=== PATIENT | female | born 1995 | race Caucasian/White ===

== ENCOUNTER 2017-09-27 01:15 | Emergency (ER) | payer OTHER ==
[~2017-09-27] VITALS: Ht 167.6 cm; Wt 105.9 kg
[2017-09-27 01:18] VITALS: TEMP 36.8; Ht 167.6 cm; Wt 105.9 kg
--- NOTE | 2017-09-27 01:26 | EMERGENCY ROOM VISIT NOTE ---
History Report prepared by Emi: Michele Alcantara Under the Supervision of: Dr. Gaurav Carrizales M.D. First contact with patient: 01:17 Chief Complaint: ALCOHOL OVERDOSE Stated Complaint: ALCOHOL OVERDOSE History of Present Illness The patient is a 22 year old female who presents to the Emergency Room brought in by EMS with complaints of persistent general alcohol intoxication. She states that she has consumed six shots of alcohol. She has a history of anxiety and depression. She states that she has vomited twice. She reports bilateral foot pain. She reports pain everywhere. HPI is limited secondary to alcohol intoxication. Source of History: patient History Limited By: intoxication (alcohol) Onset: [employer] Position: other (general ) Quality: other (alcohol intoxication) Timing: other (persistent) Note: Notes bilateral foot pain. Review of Systems ROS is limited secondary to alcohol intoxication. Past Medical & Surgical Medical Problems: (1) Anxiety (2) Depression Family History No pertinent family history Social History Smoking Status: Never Smoker Smokeless Tobacco Use: No Alcohol Use: heavy Drug Use: none Marital Status: single Housing Status: lives with roommate Occupation Status: [employer] student Current/Historical Medications Scheduled Gabapentin (Neurontin), 400 MG PO TID Medroxyprogesterone Acetate (Depo-Provera), 1 DOSE INJ Q3MO Scheduled PRN Ibuprofen Tab (Advil), 200-600 MG PO Q4H PRN for Pain Allergies Coded Allergies: No Known Allergies (Unverified , 09/27/17) Physical Exam Vital Signs Date Time Temp Pulse Resp B/P (MAP) Pulse Ox O2 Delivery O2 Flow Rate FiO2 09/27/17 06:25 78 16 123/80 99 Room Air 09/27/17 05:50 93 09/27/17 05:41 90 16 106/63 98 Room Air 09/27/17 04:25 85 16 137/92 97 Room Air 09/27/17 03:09 87 20 90/56 98 Room Air 09/27/17 02:04 78 16 119/83 100 Room Air 09/27/17 01:28 100 Room Air 09/27/17 01:28 107 09/27/17 01:18 36.8 109 24 119/83 100 Room Air Physical Exam GENERAL: Patient is heavily intoxicated. Smells of alcohol. Well appearing and in no acute distress. Crying. Vomit in her hair. HEAD: No evidence of Trauma. AT/NC EYES: Injected conjunctiva. Normal EOM. Pupils equal/reactive. ENT: Mucous membranes moist, no nasal congestion. NECK: No step-offs, no adenopathy, no meningismus, trachea is midline. LUNGS: No dyspnea. Clear to auscultation and equal bilaterally. No wheeze, no rhonchi. HEART: Regular rate and rhythm. No murmurs, rubs, gallops appreciated. GI: Abdomen soft, nontender, no peritonitis. Bowel sounds positive. No masses appreciated. BACK: No midline tenderness, no stepoffs, no CVA tenderness EXTREMITIES: Normal motion all extremities, no cyanosis, no edema. NEUROLOGIC: Intoxicated. Crying and upset, answers all questions. No acute motor or sensory deficits, no focal weakness, cranial nerves grossly intact. SKIN: No rash, no jaundice, no diaphoresis. Old scarring bilateral ankles. Medical Decision & Procedures Laboratory Results 09/27/17 01:24 Test 09/27/17 01:24 Anion Gap 3.0 mmol/L (3-11) Est Creatinine Clear Calc Drug Dose 142.8 ml/min Estimated GFR () 129.1 Estimated GFR (Non- 111.3 BUN/Creatinine Ratio 18.0 (10-20) Calcium Level 9.0 mg/dl (8.5-10.1) Human Chorionic Gonadotropin, Qual NEG (NEG) Ethyl Alcohol mg/dL 219.0 mg/dl (0-3) Laboratory results as reviewed by me. ED Course 0118: The patient was evaluated in room A12B. A complete history and physical exam was performed. 0401: I reassessed the patient at this time. She is awake and crying. She admits to alcohol use. She denies any SI or HI. 0730: I reassessed the patient at this time. She is feeling better and resting comfortably. I discussed the results and treatment plan with the patient. I answered all pertaining questions that she had. She expressed understanding and verbalized agreement. The patient will be discharged home. Medical Decision Differential: Alcohol Intoxication, Drug Intoxication, Electrolyte Abnormality, Trauma, Intracranial Event, Toxicological, Excited Delirium, Serotonin Syndrome , amongst other pathologies entertained. 22 yr old intoxicated female brought in by EMS after being found vomiting in dorm bathrooms. Patient admits etoh after finishing final project of semester and to relax. Admits this just made her more anxious (chronic anxiety). Denies any suicidal/homicidal thoughts nor actions. She was awake throughout much of stay be a bit too intoxicated to go home quite yet. She admits chronic insomnia issues and being awake all night not unusual for her. Patient with no evidence nor history for trauma. Protecting airway and breathing comfortably throughout ED stay. Monitored and discharged when awake, alert, oriented and denies any complaints. Medication Reconcilliation Current Medication List: was personally reviewed by me Blood Pressure Screening Patient's blood pressure: Normal blood pressure Impression Primary Impression: Alcohol use with intoxication Scribe Attestation The scribe's documentation has been prepared under my direction and personally reviewed by me in its entirety. I confirm that the note above accurately reflects all work, treatment, procedures, and medical decision making performed by me. Departure Information Patient Instructions [facility], [facility]: [employer] Students and Alcohol Related Visits Additional Instructions You were evaluated in emergency department for intoxication. This is a sign of Alcohol Abuse and should not be taken lightly. You had a blood alcohol level that was significantly elevated. Over the next 24 hours keep well hydrated and eat light meals. Don't drink any more alcohol. This is important. Please discuss this visit with your Primary Care Provider and/or your loved ones. Unless an exceptional circumstance, the Hospital DOES NOT contact anyone DURING your visit, nor is your Protected Medical Information released to anyone without your approval/request. This means we do not contact your Parents, the Police, etc. However, you will likely receive a bill from the Hospital and/or your Insurance company, which will usually be sent to the Primary Policy Schreiber (often one's Parents). If the Police were involved you will likely be cited for public intoxication. Please contact either [facility] Police or the [employer] Police for further information. Call 911 or return to Emergency Department if you develop: Passing out, difficulty breathing, many episodes of vomiting, blood in vomit or stool, abdominal pain, fevers, or other severe symptoms. We are always here to help if you feel you need further evaluation or treatment.
[2017-09-27 01:28] VITALS: O2SAT 100
[2017-09-27 01:49] LABS: CREATININE 0.76 mg/dl (0.60-1.20); POTASSIUM 3.8 mmol/L (3.5-5.1)
[2017-09-27] MEDS ORDERED: IBUP-103 PO (01:58)
[2017-09-27] MEDS ORDERED: DPPI400 INJ (01:58)
[2017-09-27] MEDS ORDERED: GABA-1220 PO (01:58)
[2017-09-27 06:25] VITALS: BP 123/80; PULSE 78; O2SAT 99
== END 2017-09-27 06:30 | disposition home or self-care (01) ==
LOC: C.EDA 01:18
DX: F10.929 Alcohol use, unspecified with intoxication, unspecified (principal); Y90.7 Blood alcohol level of 200-239 mg/100 ml; F41.9 Anxiety disorder, unspecified; F32.9 Major depressive disorder, single episode, unspecified; Z79.899 Other long term (current) drug therapy